=== PATIENT | female | born 1955 | race Caucasian/White ===

== ENCOUNTER 2024-06-30 00:17 | Day surgery (SDC) | payer MEDICARE, BC ==
[~2024-06-30 00:17] MED LIST: CETI5; LANS15EC PO; LEVSOD112 PO; LIDO700A20 TOP; LOSARTAN-HCTZ1 EACH PO; ROMOSOZUMAB-AQQG 210 MG/2.34 ML KIT SC SCH; VERAPAMIL; Valium5 MG PO
[2024-06-30] MEDS ORDERED: ROMOSOZUMAB-AQQG 210 MG/2.34 ML KIT SC SCH (06:00)
[2024-06-30 08:00] VITALS: BP 159/89
[2024-06-30] MEDS ORDERED: ALBU90OI INH (08:03)
[2024-06-30] MEDS ORDERED: BUPR75 PO (08:04)
[2024-06-30] MEDS ORDERED: OMEP20ER PO (08:07)
[2024-06-30] MEDS ORDERED: POTA10T PO (08:07)
[2024-06-30] MEDS ORDERED: EVENITY SC (08:08)
[2024-06-30] MEDS ORDERED: VERA240ER PO (08:09)
[2024-06-30] MEDS ORDERED: UBID10 PO (08:09)
[2024-06-30] MEDS ORDERED: BANOPHEN25 MG PO (08:10)
[2024-06-30] MEDS ORDERED: VITB2 (08:10)
[2024-06-30] MEDS ORDERED: EPIPEN0.3 MG/0.3 IM (08:11)
== END 2024-06-30 09:03 | disposition home or self-care (01) ==
LOC: ATC 00:17
DX: M81.0 Age-related osteoporosis without current pathological fracture (principal); Z88.8 Allergy status to other drugs, medicaments and biological substances; Z79.899 Other long term (current) drug therapy
CPT/HCPCS: 96372; J3111

== ENCOUNTER 2024-07-29 00:55 | Day surgery (SDC) | payer MEDICARE, BC ==
[~2024-07-29 00:55] MED LIST changes: +ALBU90OI INH; +BANOPHEN25 MG PO; +BUPR75 PO; +EPIPEN0.3 MG/0.3 IM; +EVENITY SC; +OMEP20ER PO; +POTA10T PO; -ROMOSOZUMAB-AQQG 210 MG/2.34 ML KIT SC SCH; +UBID10 PO; +VERA240ER PO; +VITB2
[2024-07-29] MEDS ORDERED: ROMOSOZUMAB-AQQG 210 MG/2.34 ML KIT SC SCH (06:00)
[2024-07-29 08:03] VITALS: BP 160/97
--- NOTE | 2024-07-29 10:02 | NUR ---
NURSING NOTE PT REPORTS EXPERIENCING AN ALLERGIC REACTION AFTER LAST INJECTION OF ROMOSOZUMAB AND PROVIDED A PHOTO ON HER TABLET UPON ARRIVING TO CLINIC TODAY. ERYTHEMA APPROXIMATELY 3 INCHES IN DIAMETER AT INJECTION SITE NOTED ON PHOTO. PT STATES " SKIN BULGED 3/4 INCH OFF MY SKIN AND WAS MISERABLE. IT LASTED 10 DAYS. I TOOK 100MG OF BENADRYL AROUND THE CLOCK." THIS REPORTED REACTION IS FROM P T'S FIRST DOSE OF ROMOSOZUMAB AND SHE IS HERE TODAY FOR HER SECOND DOSE. MEDICATION HELD AND CONFIRMED WITH RYAN BLUNT AT PRESCRIBING PROVIDER'S OFFICE, [facility]. PER MERLENE, THE PRESCRIBING PROVIDER, FACUNDO LAL PA-C IS OUT OF THE OFFICE UNTIL Friday08/02/2024. WILL PLAN TO CONFIRM WITH PROVIDER THEN TO DISCUSS MEDICATION ADMINISTRATION. PT NOTIFIED AND VERBALIZED UNDERSTANDING, STATES SHE WILL CALL [facility] ON FRIDAY TO VERIFY.
== END 2024-07-29 09:45 | disposition home or self-care (01) ==
LOC: ATC 00:55
DX: M81.0 Age-related osteoporosis without current pathological fracture (principal); E03.9 Hypothyroidism, unspecified; K21.9 Gastro-esophageal reflux disease without esophagitis; H81.09 Meniere's disease, unspecified ear; Z88.6 Allergy status to analgesic agent; Z88.5 Allergy status to narcotic agent; Z88.2 Allergy status to sulfonamides; Z88.8 Allergy status to other drugs, medicaments and biological substances
CPT/HCPCS: 99211

== ENCOUNTER 2024-08-03 01:04 | Day surgery (SDC) | payer MEDICARE, BC ==
--- NOTE | 2024-08-02 09:18 | NUR ---
Received a call from Sheri at [facility]. Sheri reports Halima has spoken to Ralph and the plan is to have Ralph get her injection tomorrow. Elio states Ralph and Halima have worked out a plan and Ralph will have prednisone and benedryl at home that she can take as instructed by Halima should she need it. Ralph has an appointment scheduled on 08/03 at 1700.
[2024-08-03] MEDS ORDERED: ROMOSOZUMAB-AQQG 210 MG/2.34 ML KIT SC SCH (06:00)
[2024-08-03 17:00] VITALS: BP 162/90
[2024-08-03] MEDS ORDERED: Prednisone10 MG PO (17:36)
--- NOTE | 2024-08-03 17:44 | NUR ---
Ralph arrived for her second injection of Romosozumab--aqqg at 1700 this evening. VS on arrival: 96.3 - WC=532/90 - HR=89 - RR=16. Ralph reports her BP at home was 124/62 and that her elevated BP is from being in the clinical and being anxious about being able to receive this med without having a severe reaction. She has premedicated with prednisone 10 mg PO yesterday and today and also took benedryl 100 mg PO and lorazepam 1 mg prior to arrival (1630). Ralph and her provider have spoken about her trying this injection again with premedications as well as reaction medications that she takes as needed. Ralph brought all of her usual reaction medications from home except the nebulizer which she did not bring. Injection given into right outer tricept at 1703. Ralph reports that at 1710 she can feel some swelling/fullness in her throat. 1715: Ralph took another 75 mg of PO benedryl (which she states she can take up to 7 benedryl per her usual reaction routine.) 1721: She states she does have some itching hands, face, arms which is a reaction that is unusual for her. 5740-6090: Ralph took her albuterol inhaler (3 puffs total). She continues to have some throat hoarsensess and throat clearing which she reports are part of her usual reactions. This database report writer has offered the epi SC at any time that she feels that she needs it. Ralph states that she feels ok at this time and that this is how her reactions usually go. She states she will tell this database report writer if she feels that she needs the epinephrine. Her is present in the room with her and she states is familiar with her reactions and treatment routine. 1733: Ralph took lorazepam 1mg PO. HR=90, O2 sat 98-99%. Less throat clearing at this time. 1741: Ralph states that the "swelling progression in my throat has stopped and the shaking inside the body has improved." 1755: Ralph continues to report less swelling and soreness in throat. She also report soft palate tissue swelling that started earlier is decreasing as well. Her states that the 10 mg of prednisone isn't enough to pre medicate for her reactions. Encouraged Ralph to speak with her provider about options for pre medications if she is able to continue with these injections. 1820: Ralph states she feels like her symptoms have improved, now with just an occasional clearing of the throat. She states that she feels that the worst part of the reaction is over and that she is comfortable in going home. Her agrees that she is improved and comfortable taking her home. VS at this time: 97.5 - XL=163/78 - HR=73, RR=16 - O2 sat = 97% on RA. Encouraged Ralph to seek medical treatment if her reaction returns or gets worse again.
--- NOTE | 2024-08-03 18:47 | NUR ---
Faxed a copy of nurse's notes from today's visit to [facility]. Ralph states she will follow up with her MD re: today's visit.
== END 2024-08-03 18:20 | disposition home or self-care (01) ==
LOC: ATC 01:04
DX: M81.0 Age-related osteoporosis without current pathological fracture (principal); E03.9 Hypothyroidism, unspecified; K21.9 Gastro-esophageal reflux disease without esophagitis; Z79.890 Hormone replacement therapy; Z79.899 Other long term (current) drug therapy
CPT/HCPCS: 96372; J3111

== ENCOUNTER 2024-08-31 11:39 | Day surgery (SDC) | payer MEDICARE, BC ==
[~2024-08-31 11:39] MED LIST changes: +Prednisone10 MG PO; +ROMOSOZUMAB-AQQG 210 MG/2.34 ML KIT SC SCH
[2024-08-31 16:32] VITALS: BP 168/80
--- NOTE | 2024-08-31 17:29 | NUR ---
SEE OTHE NOTE ON INJECTION RECORD: PT STATES THAT SHE FEELS BETTER, LESS CLEARING OF THROAT, WANTING TO GO HOME, THIS RN WILL CALL NEXT WEEK TO REQUEST POSSIBLE SEVERE REACTION MEDICATIONS FOR THIS PT FOR FUTURE INJECTIONS
== END 2024-08-31 17:15 | disposition home or self-care (01) ==
LOC: ATC 11:39
DX: M81.0 Age-related osteoporosis without current pathological fracture (principal); E03.9 Hypothyroidism, unspecified; K21.9 Gastro-esophageal reflux disease without esophagitis; Z79.890 Hormone replacement therapy; Z79.899 Other long term (current) drug therapy
CPT/HCPCS: 96372; J3111